=== PATIENT | male | born 1970 | race American Indian/Alaskan Native ===

== ENCOUNTER 2017-06-30 11:59 | Emergency (ER) | payer SELFPAY ==
[2017-06-30 12:10] VITALS: BP 151/99
--- NOTE | 2017-06-30 13:58 | Emergency Department Report ---
[facility] Chief Complaint: Eye Problems Stated Complaint: PINK EYE Time Seen by Provider: 06/30/17 13:51 Duration: 4 Days Side: Right Severity: moderate Symptoms: Yes Eye Itching, Yes Eye Redness, Yes Eye Pain, Yes Purulent Drainage , No Blurred Vision, No Preceding URI, No H/O Allergic Rhinitis, No Contact Lens Use, No Trauma, No Fever, No Headache ED Review of Systems ROS: Stated complaint: PINK EYE Other details as noted in HPI Comment: All other systems reviewed and negative ED Past Medical Hx - Past Medical History Hx Hypertension: Yes - Surgical History Past Surgical History?: Yes Hx Appendectomy: Yes - Social History Smoking Status: Current Every Day Smoker Substance Use Type: Marijuana - Medications Home Medications: Home Medications Medication Instructions Recorded Confirmed Last Taken Type Gentamicin 0.3% Ophth Soln 2 drops OP Q4H #1 bottle 06/30/17 Unknown Rx Lisinopril/Hydrochlorothiazide 1 tab PO QDAY #30 tablet 06/30/17 Unknown Rx [Zestoretic 10-12.5 mg] [facility] Exam - Exam General: Vital signs noted. No distress. Alert and acting appropriately. Eye Exam: Right Injection, Right Purulent Discharge, Neither Chemosis, Neither Abnormal Pupil, Neither EOMI, Neither Eye Foreign Body, Neither Lid Foreign Body , Neither Mucous Discharge, Neither Fluorescein Uptake, Neither Fluorescein Uptake (slit lamp), Neither Cell/Flare (slit lamp), Neither Corneal Edema, Neither Photophobia HEENT: No Nasal Congestion, No Pharyngeal Erythema Remainder of HEENT: Normal Lungs: Yes Clear Lung Sounds, Yes Good Air Exchange, No Wheezes, No Stridor, No Cough, No Nasal Flaring, No Retractions, No Use of Accessory Muscles ED Course Vital Signs 06/30/17 12:07 Temperature 98.6 F Pulse Rate 96 H Respiratory 18 Rate Blood Pressure 151/99 O2 Sat by Pulse 98 Oximetry ED Medical Decision Making - Medical Decision Making The size of pink eye patient also has not had his blood pressure medicines in several weeks. Refill would be done Critical care attestation.: If time is entered above; I have spent that time in minutes in the direct care of this critically ill patient, excluding procedure time. ED Disposition Clinical Impression: Hypertensive urgency, Bacterial conjunctivitis Disposition: DC- TO HOME OR SELFCARE Is pt being admited?: No Does the pt Need Aspirin: No Condition: Stable Instructions: Chronic Hypertension (ED), Conjunctivitis (ED) Prescriptions: Gentamicin 0.3% Ophth Soln 2 drops OP Q4H #1 bottle Lisinopril/Hydrochlorothiazide [Zestoretic 10-12.5 mg] 1 tab PO QDAY #30 tablet Referrals: PRIMARY CARE, [Primary Care Provider] - 3-5 Days
== END 2017-06-30 14:09 | disposition home or self-care (01) ==
LOC: ED 11:59
DX: H10.9 Unspecified conjunctivitis (principal); I16.0 Hypertensive urgency; I10 Essential (primary) hypertension; F17.200 Nicotine dependence, unspecified, uncomplicated; F12.10 Cannabis abuse, uncomplicated
CPT/HCPCS: 99282